=== PATIENT | male | born 1990 | race Caucasian/White ===

== ENCOUNTER 2017-02-02 22:47 | Emergency (ER) | payer OTHER ==
[~2017-02-02] VITALS: Ht 188 cm; Wt 90.7 kg
[~2017-02-02 22:47] MED LIST: BACTROBAN22 GM TOP; DEXTROSTAT; DOXYCYCLINE HY100 M1 PO; ELIMITE60 GM TOP; NO MEDICATIONS; PEPCID AC20 M2 PO; PHENERGAN25 M1 PO; TEGRETOL; WELLBUTRIN; ZYRTEC
[2017-02-02 23:32] LABS: URINE SOURCE CLEAN CATCH
[2017-02-02 23:34] LABS: URINE APPEARANCE TURBID; URINE BILIRUBIN NEG (NEG); URINE BLOOD NEG (NEG); URINE COLOR YELLOW; URINE GLUCOSE NEG (NORM); URINE KETONE 1+ (NEG); URINE LEUKOCYTE ESTERASE NEG (NEG); URINE NITRATE NEG (NEG); URINE PROTEIN NEG (NEG); URINE SPECIFIC GRAVITY 1.015 (1.003-1.035)
[2017-02-02 23:35] LABS: MICRO INDICATED? NO
[2017-02-05 10:28] LABS: CHLAMYDIA TRACH Detected (Not Detected); N GONOR Detected (Not Detected)
== END 2017-02-02 23:45 | disposition home or self-care (01) ==
LOC: SED 22:47
PROVIDERS: Physician Assistant
DX: A54.01 Gonococcal cystitis and urethritis, unspecified (principal)
CPT/HCPCS: 81003; 87491; 87591; 96372; 99283; J0696